=== PATIENT | male | born 1950 | race Hispanic/Latino ===

== ENCOUNTER 2017-11-07 15:30 | Inpatient (IN) | payer OTHER ==
[~2017-11-07] VITALS: Ht 172.7 cm; Wt 88.1 kg
[~2017-11-07 15:30] MED LIST: HYDR12.530 PO; METF500T6 PO; ROSU10TA PO
[2017-11-07 16:42] VITALS: BP 142/79
[2017-11-07] MEDS ORDERED: LOSA50TA37 PO (16:54)
[2017-11-07 17:03] LABS: APPEARANCE,URINE Clear (CLEAR); BILIRUBIN,URINE Negative (NEGATIVE); COLOR,URINE Yellow (YELLOW); GLUCOSE, URINE (UA) Negative (NEGATIVE); KETONES,URINE Negative (NEGATIVE); LEUKOCYTE ESTERASE ,URINE Negative (NEGATIVE); NITRATE,URINE Negative (NEGATIVE); OCCULT BLOOD,URINE Negative (NEGATIVE); PROTEIN,URINE Negative (NEGATIVE)
[2017-11-08] MEDS ORDERED: CEFAZOLIN SODIUM 1 GM VIAL IVP SCH (06:00)
[2017-11-24 10:19] LABS: BASOPHILS % (AUTO) 0.6 % (0.0-5.0); EOSINOPHILS % (AUTO) 2.6 % (0.0-8.0); HEMATOCRIT 37.1 % (42-54); LYMPHOCYTES % (AUTO) 26.2 % (21.0-51.0); MEAN CORPUSCULAR HEMOGLOBIN 31.1 pg (27.0-33.0); MEAN CORPUSCULAR HGB CONC 34.9 g/dL (32.0-36.0); MONOCYTES % (AUTO) 7.3 % (3.0-13.0); NEUTROPHILS % (AUTO) 63.3 % (40.0-77.0); NUCLEATED RED BLOOD CELLS 0.1 % (0.0-0.19); PLATELET COUNT (AUTO) 138 K/uL (130-400); RED BLOOD CELL COUNT(AUTO) 4.17 MIL/uL (4.50-6.20); RED CELL DISTRIBUTION WIDTH 13.7 % (11.0-15.5); WHITE BLOOD COUNT (AUTO) 5.7 K/uL (4.8-10.8)
[2017-11-24 10:33] LABS: CREATININE 1.2 mg/dL (0.5-1.5); POTASSIUM 3.8 mmol/L (3.5-5.1)
[2017-11-24 10:34] LABS: INR 1.03 (0.85-1.15); PARTIAL THROMBOPLASTIN TIME 26.5 SEC (26.3-35.5); PROTHROMBIN TIME 10.8 SEC (9.6-11.6)
[2017-11-27] VITALS (17 sets, daily range): BP systolic 81–135; BP diastolic 41–79
[2017-11-27] MEDS ORDERED: SODIUM CHLORIDE 0.9% 1000ML 1,000 ML IV ONE (13:45)
[2017-11-27] MEDS: CEFAZOLIN SODIUM 1 GM VIAL ONE ×2 (14:04→18:50)
[2017-11-27] MEDS ORDERED: TRANEXAMIC ACID 1000MG/10ML IV ONE ×2 (15:05)
[2017-11-27] MEDS ORDERED: CEFAZOLIN SODIUM 1 GM VIAL ONE ×2 (15:05→22:11)
[2017-11-27] MEDS ORDERED: ACETAMINOPHEN EXTRA STRENGTH 500 MG TABLET ONE (15:08)
[2017-11-27] MEDS ORDERED: KETOROLAC TROMETHAMINE 15MG/ML ONE (15:08)
[2017-11-27] MEDS ORDERED: CELECOXIB 200 MG CAP ONE (15:09)
[2017-11-27] MEDS ORDERED: METOCLOPRAMIDE 10 MG/2 ML VIAL ONE (15:09)
[2017-11-27] MEDS ORDERED: OXYCODONE HCL 10 MG TAB.SR.12H PO ONE (15:10)
[2017-11-27] MEDS ORDERED: LIDOCAINE PF 2% 5ML ABBOJECT ONE (16:30)
[2017-11-27] MEDS ORDERED: GLYCOPYRROLATE 0.2 MG/ML 5 ML VIAL ONE (16:30)
[2017-11-27] MEDS ORDERED: ONDANSETRON HCL 4 MG/2 ML VIAL ONE (16:30)
[2017-11-27] MEDS ORDERED: DEXAMETHASONE SOD PHOSPHATE 10MG/ML 1ML VIAL ONE (16:30)
[2017-11-27] MEDS ORDERED: SUCCINYLCHOLINE 200MG/10ML SYR ONE (16:30)
[2017-11-27] MEDS ORDERED: FENTANYL CITRATE PF 50 MCG/1 ML 2ML VIAL ONE ×2 (16:31→19:23)
[2017-11-27] MEDS ORDERED: PROPOFOL 10 MG/ML 20ML VIAL IV ONE (16:31)
[2017-11-27] MEDS ORDERED: MIDAZOLAM HCL 1 MG/ML 2ML VIAL ONE (16:31)
[2017-11-27] MEDS ORDERED: ROPIVACAINE 0.5% 5MG/ML 30ML IJ ONE (16:38)
[2017-11-27] MEDS ORDERED: VECURONIUM BROMIDE 10 MG ML IV ONE (19:27)
[2017-11-27] MEDS ORDERED: NEOSTIGMINE 5MG/5ML SYR IV ONE (22:02)
[2017-11-27] MEDS: SODIUM CHLORIDE 0.9% 1000ML 1,000 ML IV SCH (22:13)
[2017-11-27] MEDS ORDERED: KETOROLAC TROMETHAMINE 15MG/ML IV PRN (22:15)
[2017-11-27] MEDS: ACETAMINOPHEN 325 MG TAB PO SCH (22:15)
[2017-11-27] MEDS ORDERED: POTASSIUM CHLORIDE 20MEQ/100ML 100 ML IV PRN (22:15)
[2017-11-27] MEDS ORDERED: PROMETHAZINE HCL 25 MG/ML 1ML AMPULE IM PRN (22:15)
[2017-11-27] MEDS ORDERED: TRAMADOL HCL 50 MG TABLET PO PRN (22:15)
[2017-11-27] MEDS ORDERED: POTASSIUM CHLORIDE 10% ELIXIR 20 MEQ/15 ML UDCUP PO PRN (22:15)
[2017-11-27] MEDS ORDERED: OXYCODONE HCL 5 MG TAB PO PRN (22:15)
[2017-11-27] MEDS ORDERED: DiphenhydrAMINE HCL 50 MG/ML VIAL IVP PRN (22:15)
[2017-11-27] MEDS ORDERED: TEMAZEPAM 15 MG CAPSULE PO PRN (22:15)
[2017-11-27] MEDS ORDERED: DIPHENHYDRAMINE HCL 25 MG CAPSULE PO PRN (22:15)
[2017-11-27] MEDS ORDERED: LIDOCAINE HCL-MPF 1% 2ML VIAL IVP PRN (22:15)
[2017-11-27] MEDS ORDERED: FERROUS FUMARATE 324 MG TABLET PO PRN (22:15)
[2017-11-28] VITALS (14 sets, daily range): BP systolic 108–131; BP diastolic 57–75
[2017-11-28] MEDS ORDERED: CEFAZOLIN SODIUM 1 GM VIAL ONE ×2 (03:13→11:31)
[2017-11-28] MEDS: CEFAZOLIN 2GM / 50 ML 50 ML IV SCH ×2 (03:19→11:15)
[2017-11-28] MEDS: ACETAMINOPHEN 325 MG TAB PO SCH ×4 (04:15→20:39)
[2017-11-28 04:50] LABS: HEMATOCRIT 31.3 % (42-54); MEAN CORPUSCULAR HEMOGLOBIN 31.5 pg (27.0-33.0); MEAN CORPUSCULAR HGB CONC 35.1 g/dL (32.0-36.0); MEAN CORPUSCULAR VOLUME 89.7 fL (79-99); NUCLEATED RED BLOOD CELLS 0.1 % (0.0-0.19); PLATELET COUNT (AUTO) 109 K/uL (130-400); RED BLOOD CELL COUNT(AUTO) 3.49 MIL/uL (4.50-6.20); RED CELL DISTRIBUTION WIDTH 13.6 % (11.0-15.5); WHITE BLOOD COUNT (AUTO) 6.6 K/uL (4.8-10.8)
[2017-11-28 05:04] LABS: CREATININE 1.4 mg/dL (0.5-1.5); POTASSIUM 4.2 mmol/L (3.5-5.1)
[2017-11-28] MEDS: INSULIN HUMULIN R 100 UNIT/ML 3ML SQ SCH ×4 (07:30→20:48)
[2017-11-28] MEDS: SODIUM CHLORIDE 0.9% 1000ML 1,000 ML IV SCH ×2 (08:13→18:13)
[2017-11-28] MEDS: CELECOXIB 200 MG CAP PO SCH ×2 (09:45→16:54)
[2017-11-28] MEDS: LOSARTAN 50 MG TABLET PO SCH (09:45)
[2017-11-28] MEDS: ASPIRIN 325 MG TABLET PO SCH ×2 (09:45→16:54)
[2017-11-28] MEDS: METFORMIN HCL 500 MG TABLET PO SCH ×2 (09:45→16:54)
[2017-11-28] MEDS: HYDROCHLOROTHIAZIDE 25 MG TABLET PO SCH (09:46)
[2017-11-28] MEDS: PREGABALIN 25 MG CAP PO SCH ×2 (09:46→20:38)
[2017-11-28] MEDS: FAMOTIDINE 20MG TAB 20 MG TAB PO SCH ×2 (09:46→20:38)
[2017-11-28] MEDS: POLYETHYLENE GLYCOL 3350 17 GM POWD.PACK PO SCH (09:46)
[2017-11-28] MEDS: TAMSULOSIN HCL 0.4 MG CAP.ER.24H PO SCH (09:46)
[2017-11-28] MEDS: CALCIUM CARBONATE 500 MG TABLET PO PRN ×2 (11:35→20:38)
[2017-11-28] MEDS: PSYLLIUM SEED 1 EACH PACKET PO SCH (11:35)
[2017-11-28] MEDS ORDERED: CEFAZOLIN SODIUM 1 GM VIAL IVP SCH (11:52)
[2017-11-28] MEDS: ATORVASTATIN CALCIUM 20 MG TABLET PO SCH (20:38)
[2017-11-29] VITALS: BP 92/56
[2017-11-29] MEDS: ACETAMINOPHEN 325 MG TAB PO SCH ×4 (03:13→21:13)
[2017-11-29 04:00] VITALS: BP 108/61
[2017-11-29 05:02] LABS: HEMATOCRIT 28.4 % (42-54); MEAN CORPUSCULAR VOLUME 88.6 fL (79-99); PLATELET COUNT (AUTO) 97 K/uL (130-400); RED CELL DISTRIBUTION WIDTH 13.5 % (11.0-15.5); WHITE BLOOD COUNT (AUTO) 5.2 K/uL (4.8-10.8)
[2017-11-29 05:15] LABS: CREATININE 1.4 mg/dL (0.5-1.5); POTASSIUM 3.5 mmol/L (3.5-5.1)
[2017-11-29] MEDS: POTASSIUM CHLORIDE 20 MEQ ERTAB PO PRN ×2 (06:54→08:55)
[2017-11-29] MEDS: INSULIN HUMULIN R 100 UNIT/ML 3ML SQ SCH ×4 (07:07→21:23)
[2017-11-29 07:53] VITALS: BP 115/61
[2017-11-29] MEDS: CELECOXIB 200 MG CAP PO SCH ×2 (08:54→17:42)
[2017-11-29] MEDS: ASPIRIN 325 MG TABLET PO SCH ×2 (08:54→17:42)
[2017-11-29] MEDS: METFORMIN HCL 500 MG TABLET PO SCH ×2 (08:55→17:42)
[2017-11-29] MEDS: TAMSULOSIN HCL 0.4 MG CAP.ER.24H PO SCH (08:55)
[2017-11-29] MEDS: FAMOTIDINE 20MG TAB 20 MG TAB PO SCH ×2 (08:55→21:10)
[2017-11-29] MEDS: LOSARTAN 50 MG TABLET PO SCH (08:55)
[2017-11-29] MEDS: HYDROCHLOROTHIAZIDE 25 MG TABLET PO SCH (08:55)
[2017-11-29] MEDS: PREGABALIN 25 MG CAP PO SCH ×2 (08:56→21:10)
[2017-11-29] MEDS: OXYCODONE HCL 5 MG TAB PO PRN (08:56)
[2017-11-29] MEDS: POLYETHYLENE GLYCOL 3350 17 GM POWD.PACK PO SCH (08:56)
[2017-11-29 11:26] VITALS: BP 100/60
[2017-11-29] MEDS ORDERED: BISACODYL 5 MG TABLET.DR PO ONE (12:09)
[2017-11-29] MEDS: PSYLLIUM SEED 1 EACH PACKET PO SCH (12:25)
[2017-11-29 16:21] VITALS: BP 125/73
[2017-11-29] MEDS ORDERED: CELE200 PO (16:34)
[2017-11-29] MEDS ORDERED: HYDR-309 PO (16:34)
[2017-11-29] MEDS ORDERED: ASPI-1012 PO (16:34)
[2017-11-29] MEDS ORDERED: PREG50 PO (16:39)
[2017-11-29 19:36] VITALS: BP 99/57
[2017-11-29] MEDS: ATORVASTATIN CALCIUM 20 MG TABLET PO SCH (21:10)
[2017-11-29] MEDS ORDERED: BISACODYL 5 MG TABLET.DR PO PRN (22:15)
[2017-11-30 00:11] VITALS: BP 105/60
[2017-11-30] MEDS: ACETAMINOPHEN 325 MG TAB PO SCH ×2 (03:54→09:55)
[2017-11-30 05:05] VITALS: BP 98/58
[2017-11-30 05:28] LABS: HEMATOCRIT 28.5 % (42-54); MEAN CORPUSCULAR HEMOGLOBIN 31.6 pg (27.0-33.0); MEAN CORPUSCULAR HGB CONC 35.5 g/dL (32.0-36.0); MEAN CORPUSCULAR VOLUME 89.1 fL (79-99); PLATELET COUNT (AUTO) 87 K/uL (130-400); RED CELL DISTRIBUTION WIDTH 13.5 % (11.0-15.5); WHITE BLOOD COUNT (AUTO) 4.4 K/uL (4.8-10.8)
[2017-11-30 05:41] LABS: CREATININE 1.3 mg/dL (0.5-1.5); POTASSIUM 3.8 mmol/L (3.5-5.1)
[2017-11-30] MEDS: INSULIN HUMULIN R 100 UNIT/ML 3ML SQ SCH ×2 (06:36→11:51)
[2017-11-30 07:55] VITALS: BP 119/70
[2017-11-30] MEDS: POLYETHYLENE GLYCOL 3350 17 GM POWD.PACK PO SCH (08:09)
[2017-11-30] MEDS: METFORMIN HCL 500 MG TABLET PO SCH (08:10)
[2017-11-30] MEDS: LOSARTAN 50 MG TABLET PO SCH (08:10)
[2017-11-30] MEDS: CELECOXIB 200 MG CAP PO SCH (08:10)
[2017-11-30] MEDS: TAMSULOSIN HCL 0.4 MG CAP.ER.24H PO SCH (08:10)
[2017-11-30] MEDS: PREGABALIN 25 MG CAP PO SCH (08:10)
[2017-11-30] MEDS: ASPIRIN 325 MG TABLET PO SCH (08:10)
[2017-11-30] MEDS: FAMOTIDINE 20MG TAB 20 MG TAB PO SCH (08:10)
[2017-11-30] MEDS: HYDROCHLOROTHIAZIDE 25 MG TABLET PO SCH (08:14)
[2017-11-30] MEDS: OXYCODONE HCL 5 MG TAB PO PRN (08:14)
[2017-11-30 11:17] VITALS: BP 118/68
[2017-11-30] MEDS: PSYLLIUM SEED 1 EACH PACKET PO SCH (11:50)
[2017-11-30] MEDS ORDERED: BISACODYL 10 MG SUPP.RECT RC PRN (22:15)
== END 2017-11-30 12:39 | DRG 470 ==
LOC: EDSTATUS 15:30 → DAHIP 11-27 12:57 → 4AH 11-27 23:52
PROVIDERS: ADMIT Orthopaedic Surgery; ATTEND Orthopaedic Surgery
PROC: 0SRB0JZ Replacement of Left Hip Joint with Synthetic Substitute, Open Approach (ICD-10-PCS; principal; 2017-11-27 19:30)
DX: M16.12 Unilateral primary osteoarthritis, left hip (principal); E11.9 Type 2 diabetes mellitus without complications; I10 Essential (primary) hypertension; E78.5 Hyperlipidemia, unspecified; Z83.3 Family history of diabetes mellitus; Z82.49 Family history of ischemic heart disease and other diseases of the circulatory system
CPT/HCPCS: 36415; 73503; 80048; 81003; 82948; 85025; 85027; 85610; 85730; 88304; 88311; A4218; J0330; J0690; J1100; J1815; J1885; J2001; J2250; J2405; J2704; J2710; J2765; J2795; J3010; J3490; J7030